=== PATIENT | male | born 1960 | race Caucasian/White ===

== ENCOUNTER 2016-10-16 14:44 | Emergency (ER) | payer MEDICARE ==
[~2016-10-16] VITALS: Ht 167.6 cm; Wt 102.3 kg
[2016-10-16 14:47] VITALS: BP 152/92; TEMP 97.9
[2016-10-16] MEDS ORDERED: ZOCOR 10MG10 MG PO (15:20)
[2016-10-16] MEDS ORDERED: VENLAFAXINE225 MG PO (15:20)
[2016-10-16] MEDS ORDERED: GLUCOTROL XL5 MG/TAB PO (15:20)
[2016-10-16] MEDS ORDERED: ASPIRIN 32325 MG/TAB PO (15:21)
[2016-10-16] MEDS ORDERED: TOPROL XL 25MG25 MG PO (15:21)
[2016-10-16] MEDS ORDERED: LIPITOR20 MG PO (15:22)
[2016-10-16] MEDS ORDERED: PLAVIX 75MG TAB75 MG PO (15:22)
[2016-10-16] MEDS ORDERED: NORCO 325 MG-7.1 TAB PO (16:31)
[2016-10-16 16:38] VITALS: PULSE 84
== END 2016-10-16 16:39 | disposition home or self-care (01) ==
LOC: COL.ER 14:44
DX: M25.551 Pain in right hip (principal); I10 Essential (primary) hypertension; E11.9 Type 2 diabetes mellitus without complications; F17.200 Nicotine dependence, unspecified, uncomplicated; I87.8 Other specified disorders of veins; Z79.02 Long term (current) use of antithrombotics/antiplatelets; Z79.84 Long term (current) use of oral hypoglycemic drugs

== ENCOUNTER 2020-04-21 20:06 | Inpatient (IN) | payer MEDICARE ==
[~2020-04-21] VITALS: Ht 167.6 cm; Wt 98.7 kg
[~2020-04-21 20:06] MED LIST: ASPIRIN 32325 MG/TAB PO; GLUCOTROL XL5 MG/TAB PO; LIPITOR20 MG PO; NORCO 325 MG-7.1 TAB PO; PLAVIX 75MG TAB75 MG PO; TOPROL XL 25MG25 MG PO; VENLAFAXINE225 MG PO; ZOCOR 10MG10 MG PO
[2020-04-21 20:26] LABS: BASO # 0.1 (0.0-0.2); BASO % 0.3 % (0.0-2.0); EOS % 0.1 % (0-4.0); GRAN # 15.3 (1.4-6.5); GRAN % 86.4 % (42.2-75.2); LYMPH # 0.9 (1.2-3.4); LYMPH % 5.1 % (20.0-51.0); MEAN CELL VOLUME 75 fl (80.0-100.0); MEAN CORPUSCULAR HEMOGLOBIN 24 pg (27.0-31.0); MEAN CORPUSCULAR HGB CONC 32 g/dl (33.0-37.0); MONO # 1.3 (0.1-0.6); MONO % 7.3 % (1.7-9.3); PLATELET COUNT 257 K/mm3 (130-400); RED BLOOD COUNT 4.59 M/mm3 (4.20-5.60); REDCELL DISTRIBUTION WIDTH-CV 15.8 % (11.5-14.5)
[2020-04-21 20:27] LABS: HEMATOCRIT 34.6 % (42.0-52.0)
[2020-04-21 20:40] LABS: ALANINE AMINOTRANSFERASE 14 U/L (4-49); ALBUMIN 4.2 gm/dL (3.5-5.0); ALKALINE PHOSPHATASE 74 U/L (50-136); ANION GAP 9 mmol/L (7-16); AST,SGOT 26 U/L (15-37); BILIRUBIN,TOTAL 0.8 mg/dL (0.0-1.0); BLOOD UREA NITROGEN 12 mg/dL (9-20); C-REACTIVE PROTEIN 6.5 mg/dL (0.0-0.9); CALCIUM 9.1 mg/dL (8.4-10.2); CARBON DIOXIDE 29 mmol/L (22-30); CHLORIDE 95 mmol/L (98-107); CREATININE, serum 0.75 (0.66-1.25); GLUCOSE 145 mg/dL (74-106); POTASSIUM 4.3 mmol/L (3.4-5.0); SODIUM 133 mmol/L (137-145); TOTAL PROTEIN 7.8 gm/dL (6.4-8.2)
[2020-04-21 20:43] LABS: ARTERIAL BLD GAS O2 SATURATION 96.7 % (92-100); ARTERIAL BLD GAS TCO2 CT 26.2; ARTERIAL BLOOD GAS BASE EXCESS 0.3 (-2-2); ARTERIAL BLOOD GAS PCO2 40.7 mmHg (35-45); ARTERIAL BLOOD GAS pH 7.41 (7.35-7.45)
[2020-04-21 20:46] LABS: INR 1.3 (0.8-3.0); PROTHROMBIN TIME 14.1 SECONDS (9.7-12.8)
[2020-04-21 20:49] LABS: TROPONIN-I < 0.012 ng/mL (0.000-0.035)
[2020-04-21 23:11] LABS: COLLECTION METHOD CATHETER
[2020-04-21] MEDS ORDERED: LIPITOR 40MG TA40 MG PO (23:15)
[2020-04-21] MEDS ORDERED: EFFEXOR-XR150 MG PO (23:15)
[2020-04-21] MEDS ORDERED: METHADONE H10 MG/TAB PO (23:16)
[2020-04-21] MEDS ORDERED: MORPHINE 1515 MG/TAB PO ×2 (23:16→23:18)
[2020-04-21 23:17] LABS: MUCOUS Present /lpf; PH 7 (5-8); SQUAMOUS EPITHELIAL None Seen /hpf; URINE APPEARANCE Clear; URINE BACTERIA None Seen /hpf; URINE BILIRUBIN Negative (NEGATIVE); URINE BLOOD Negative (NEGATIVE); URINE COLOR Yellow; URINE GLUCOSE Negative (NEGATIVE); URINE KETONE Negative (NEGATIVE); URINE LEUKOCYTE ESTERASE Negative (NEGATIVE); URINE NITRATE Negative (NEGATIVE); URINE PROTEIN(semi-quant) Negative (NEGATIVE); URINE UROBILINOGEN Negative (NEGATIVE)
[2020-04-21] MEDS ORDERED: NEURONTIN400 MG/CAP PO (23:17)
[2020-04-21 23:26] LABS: TRICYCLIC ANTIDEPRESS URINE NEGATIVE
[2020-04-21 23:40] LABS: ACETAMINOPHEN < 10 ug/mL (10-30); ALCOHOL(ethanol),MEDICAL < 10 mg/dL; SALICYLATE < 1.0 mg/dL
[2020-04-22] VITALS (431 sets, daily range): BP systolic 134–161; BP diastolic 63–73; PULSE 66–83; TEMP 98–98.2; O2SAT 87–100
[2020-04-22] MEDS ORDERED: MORPHINE 1515 MG/TAB PO (00:36)
[2020-04-22] MEDS ORDERED: EFFEXOR-XR150 MG PO (00:36)
[2020-04-22] MEDS ORDERED: NEURONTIN400 MG/CAP PO (00:37)
[2020-04-22] MEDS ORDERED: METHADONE H10 MG/TAB PO (00:37)
[2020-04-22] MEDS ORDERED: ONE-A-DAY ESSE1 EACH PO (00:38)
[2020-04-22] MEDS ORDERED: RT ADVAIR 228 DISKUS IH (00:38)
--- NOTE | 2020-04-22 00:45 | NUR ---
Hospitalist updated on patient status. Opens eyes to speech and stimulation. Squeezed this nurses hands on command but would not verbalize any response to any questions. Is somnolent and falls back to sleep almost immediately after stimulation. Currently on 4L oxymask with 02 saturations 90-91%. Patient able to maintain airway with no snoring and coughing noted.
--- NOTE | 2020-04-22 00:52 | NUR ---
Vancomycin Initial Dosing Pharmacy Note Ordering provider: Omero Martinez MD 59 yo M Indication: PNA (7 days) goal: 15-20 Hx: none identified BMI: 42.1 Wt:118.2 kg AdjBW: 85.6 kg SCr: 0.75 estCrCL~ 125 ml/min t 1/2~ 6h Tmax: 102.8 O2sat 92% requiring 3 L WBC: 17.7 LA WNL CRP: 6.5 Micro pending Per H&P CT chest reporting "right upper lobe and right lower lobe consolidation with associated ground-glass halo. May represent bacterial or fungal pneumonia or CESAR" Loaded pt with 2.5 gm (~21 mg/kg) x1. Will then start a maintenance regimen of 1gm q8h. Pt unlikely to follow population based kientics and at high risk for accumulation 2/2 elevated BMI. Will follow renal function and micro for need to adjust therapy. Thank you for this dosing consult!
--- NOTE | 2020-04-22 01:19 | NUR ---
Updated via telephone; all questions and concerns addressed at this time.
--- NOTE | 2020-04-22 02:00 | NUR ---
While assising with abiola-care patient suddenly sat up and stated "I need to pee". Patient voided 650 ml of orange urine into urinal. This was the first coherent verbalization patient has made since arrival to the icu. Would not verbalize anyting else for this nurse after voiding. Will continue to monitor.
--- NOTE | 2020-04-22 03:20 | NUR ---
Confirmed with hospitalist that she went over patient's medication list with the in the ER.
[2020-04-22 04:19] LABS: HEMOGLOBIN 10.3 g/dl (13.5-18.0); MEAN CELL VOLUME 76 fl (80.0-100.0); MEAN CORPUSCULAR HEMOGLOBIN 24 pg (27.0-31.0); MEAN CORPUSCULAR HGB CONC 32 g/dl (33.0-37.0); MEAN PLATELET VOLUME 9.4 fl (7.4-10.4); PLATELET COUNT 235 K/mm3 (130-400); RED BLOOD COUNT 4.27 M/mm3 (4.20-5.60); REDCELL DISTRIBUTION WIDTH-CV 15.9 % (11.5-14.5)
[2020-04-22 04:29] LABS: CALCIUM 8.9 mg/dL (8.4-10.2); CREATININE, serum 0.74 (0.66-1.25); POTASSIUM 3.9 mmol/L (3.4-5.0)
[2020-04-22 04:40] LABS: HEMATOCRIT 32.5 % (42.0-52.0)
[2020-04-22 04:42] LABS: BAND 7 % (0-10); LYMPHOCYTE 1 % (20.0-51.0); NEUTROPHILS 91 % (42.0-75.2)
[2020-04-22 04:43] LABS: ANISOCYTOSIS 1+; HYPOCHROMIA 2+; MICROCYTOSIS 1+; PLATELET ESTIMATE NORMAL (NORMAL)
[2020-04-22 04:44] LABS: SCHISTOCYTES 1+
--- NOTE | 2020-04-22 06:00 | NUR ---
Patient awake in bed. Able to tell this nurse the current year. Shook head yes when asked if he knew he was in the hospital. Able to follow basic commands appropriately. Will continue to monitor; call light left within reach.
--- NOTE | 2020-04-22 07:20 | NUR ---
Report received from Danii GUERRERO
--- NOTE | 2020-04-22 10:00 | NUR ---
Pt spouse called for an update. Discussed what was received in report. Pt has been noted to be sleeping through this shift up to this time. Will call with an update once physician completes rounds and we know more of what the plan is for today. Verbal agreement received. Phone number provided to this nurse was [phone].
--- NOTE | 2020-04-22 11:45 | NUR ---
Nicotine patch placed on right lateral inferior shoulder.
--- NOTE | 2020-04-22 12:35 | NUR ---
This nurse called pts spouce to ensure that there was no further questions following physician discussion. Concetta denies. She refused the need for staff to call with new room number, stating "I can call and get it later". Discussion was had about visitation, she was understanding although requested to bring some pt belongings to the facility. That was encouraged by this nurse. Encouragement for spouce to call with any further questions/ concerns.
--- NOTE | 2020-04-22 13:56 | NUR ---
DAYNA called spouse Jammie at [phone] to complete intake. Unable to reach. SW will continue to follow and call spouse for intake documentation.
--- NOTE | 2020-04-22 17:30 | NUR ---
Report provided to Donna GUERRERO on medical.
--- NOTE | 2020-04-22 18:20 | NUR ---
Pt assisted to Medical floor rm 308 X2 staff from ICU in wheelchair. Pt transfered with 1 vásquez movement from bed to wheelchair. Personal belongings in bags (clothes). IVF placed in pumps and reviewed with new nurse. Pt asking questions about diagnosis. Reviewed medications and diagnosis, speech therapy and the need for mechanical soft diet. Pt verbalized understanding.
--- NOTE | 2020-04-22 18:28 | NUR ---
Patient arrived to the floor and is settled. He is stable. IVF and medications running with no issues at this time. patient was instructed to call before ambulating within room for precautionary purposes.Dinner tray ordered and delivered. No other needs were expresseed. Will continue to monitor. Call light is in reach.
--- NOTE | 2020-04-22 18:40 | NUR ---
Called lisandro to notify what room pt moved to (308) and that he is asking questions, and is questing sweatpants.
--- NOTE | 2020-04-22 20:30 | NUR ---
MDI'S DID NOT TRANSFER WITH PATIENT. MOTOR TESTER NOTIFIED.
--- NOTE | 2020-04-23 02:10 | NUR ---
MDI'S DID NOT TRANSFER WITH PATIENT. LEAD ETL DEVELOPER NOTIFIED.
[2020-04-23 05:00] VITALS: BP 158/65; PULSE 91; TEMP 97.9
[2020-04-23 06:38] LABS: BASO % 0.1 % (0.0-2.0); GRAN # 16.2 (1.4-6.5); GRAN % 88.4 % (42.2-75.2); HEMATOCRIT 37.1 % (42.0-52.0); HEMOGLOBIN 11.2 g/dl (13.5-18.0); LYMPH # 1.2 (1.2-3.4); LYMPH % 6.5 % (20.0-51.0); MEAN CELL VOLUME 78 fl (80.0-100.0); MEAN CORPUSCULAR HEMOGLOBIN 24 pg (27.0-31.0); MEAN CORPUSCULAR HGB CONC 30 g/dl (33.0-37.0); MEAN PLATELET VOLUME 9.9 fl (7.4-10.4); MONO # 0.8 (0.1-0.6); MONO % 4.2 % (1.7-9.3); PLATELET COUNT 293 K/mm3 (130-400); RED BLOOD COUNT 4.76 M/mm3 (4.20-5.60); REDCELL DISTRIBUTION WIDTH-CV 16.2 % (11.5-14.5)
[2020-04-23 06:46] LABS: CALCIUM 9.3 mg/dL (8.4-10.2); CREATININE, serum 0.66 (0.66-1.25); MAGNESIUM 2.2 mg/dL (1.6-2.3)
[2020-04-23 08:13] VITALS: BP 172/72; PULSE 87; TEMP 98.1
--- NOTE | 2020-04-23 11:08 | NUR ---
Pt awake and alert upon entry, in bed. Pt ambulated to restroom. Pt's IV in right hand pulled, new IV started in left forearm. No C\O pain at this time. Shift assessments complete, left Pt call light in reach, bed in lowest position.
[2020-04-23 11:33] VITALS: BP 150/67; PULSE 99; TEMP 97.8
[2020-04-23 15:53] VITALS: BP 186/96; PULSE 84; TEMP 98.7
--- NOTE | 2020-04-23 16:44 | NUR ---
Medical Transcription Radiology contacted patient's to complete intake. Patient lives in [place] with his , Jammie and sees Dr. Yadav at [facility]. Patient obtains medications from [facility] in [place] with no difficulties. Patient has a cane and no other DME. Patient is currently requiring oxygen. SW reviewed DME options including [facility] and [facility] if home oxygen is needed. Jammie advised the preference would be [facility]. Patient does not have Advanced Directives. Jammie advised patient is independent with ADLS and plans to return home upon discharge. SW will continue to follow.
[2020-04-23 21:26] VITALS: BP 153/55; PULSE 80; TEMP 98.8
[2020-04-24 00:06] VITALS: BP 167/59; PULSE 77; TEMP 98.1
[2020-04-24 03:45] VITALS: BP 135/55; PULSE 81; TEMP 98.1
[2020-04-24 07:46] VITALS: BP 160/57; PULSE 90; TEMP 97.9
[2020-04-24 08:18] LABS: BASO % 0.1 % (0.0-2.0); GRAN # 9.2 (1.4-6.5); GRAN % 83.1 % (42.2-75.2); LYMPH # 1.2 (1.2-3.4); LYMPH % 11.2 % (20.0-51.0); MEAN CELL VOLUME 79 fl (80.0-100.0); MEAN CORPUSCULAR HGB CONC 30 g/dl (33.0-37.0); MEAN PLATELET VOLUME 10.2 fl (7.4-10.4); MONO # 0.6 (0.1-0.6); MONO % 5.3 % (1.7-9.3); PLATELET COUNT 248 K/mm3 (130-400); RED BLOOD COUNT 4.14 M/mm3 (4.20-5.60); REDCELL DISTRIBUTION WIDTH-CV 16.2 % (11.5-14.5)
[2020-04-24 08:19] LABS: HEMATOCRIT 32.5 % (42.0-52.0); HEMOGLOBIN 9.8 g/dl (13.5-18.0); MEAN CORPUSCULAR HEMOGLOBIN 24 pg (27.0-31.0)
--- NOTE | 2020-04-24 09:16 | NUR ---
Pt awake and alert upon entry, sitting in the recliner. Has minor C/O pain at this time. Shift assessment complete, left Pt call light in reach, bed in lowest position.
[2020-04-24 09:28] LABS: CALCIUM 9.2 mg/dL (8.4-10.2); CREATININE, serum 0.67 (0.66-1.25); MAGNESIUM 2.1 mg/dL (1.6-2.3); POTASSIUM 3.8 mmol/L (3.4-5.0)
[2020-04-24 11:50] VITALS: BP 155/62; PULSE 86; TEMP 98.2
--- NOTE | 2020-04-24 12:58 | NUR ---
Anesthesiologist Assistant attended clinical rounds with the team. Patient's oxygen needs are improving and currently down to 1 liter. SW will continue to follow.
--- NOTE | 2020-04-24 13:59 | NUR ---
Director Oracle received a message from RT Ramonita that patient will qualify for home oxygen. SW met with patient and confirmed [place] [facility] is the preference. DAYNA contacted Pricila at [facility] and advised patient may discharge tomorrow. DAYNA will continue to follow.
[2020-04-24 16:14] VITALS: BP 155/47; PULSE 77; TEMP 98.3
--- NOTE | 2020-04-24 19:31 | NUR ---
Pt resting in the room today, has had some C/O pain today. VS have remained stable.
--- NOTE | 2020-04-24 20:30 | NUR ---
Initial shift assessment done- denies SOB, on 1.5L/nc, sats 95%,, tele on, denies pain, has lower extremity edema and very dark discoloration of lower legs, has 2 open areas to right upper back-- pt states they are chronic and many doctors have tried to deal with this-- states at home puts some xeroform vaseling gauze and dry gauze over these--- will dress them at this time for patient-- very appreciative
[2020-04-24 21:14] VITALS: BP 159/58; PULSE 78; TEMP 97.5
[2020-04-25 00:45] VITALS: BP 156/52; PULSE 79; TEMP 97.7
[2020-04-25 04:42] VITALS: BP 137/104; PULSE 64; TEMP 97.4
--- NOTE | 2020-04-25 05:37 | NUR ---
Queit night- slept fair,, Up in chair now watching the news, no requests.
--- NOTE | 2020-04-25 07:15 | NUR ---
PT SLEEPING AT THIS TIME. NO CONCERNS.
[2020-04-25 07:28] LABS: BASO % 0.1 % (0.0-2.0); EOS % 0.2 % (0-4.0); GRAN # 6.6 (1.4-6.5); GRAN % 75.7 % (42.2-75.2); HEMATOCRIT 34.2 % (42.0-52.0); HEMOGLOBIN 10.6 g/dl (13.5-18.0); LYMPH # 1.5 (1.2-3.4); LYMPH % 17.3 % (20.0-51.0); MEAN CELL VOLUME 77 fl (80.0-100.0); MEAN CORPUSCULAR HEMOGLOBIN 24 pg (27.0-31.0); MEAN CORPUSCULAR HGB CONC 31 g/dl (33.0-37.0); MEAN PLATELET VOLUME 9.8 fl (7.4-10.4); MONO # 0.6 (0.1-0.6); MONO % 6.4 % (1.7-9.3); PLATELET COUNT 263 K/mm3 (130-400); RED BLOOD COUNT 4.44 M/mm3 (4.20-5.60)
[2020-04-25 07:38] VITALS: BP 163/68; PULSE 67; TEMP 97.6
[2020-04-25 07:42] LABS: CALCIUM 9.4 mg/dL (8.4-10.2); CREATININE, serum 0.68 (0.66-1.25); POTASSIUM 3.8 mmol/L (3.4-5.0)
[2020-04-25] MEDS ORDERED: PROVENTIL0.09 MG/A1 IH (11:07)
[2020-04-25] MEDS ORDERED: PRINIVIL10 MG PO (11:09)
[2020-04-25] MEDS ORDERED: LEVAQUIN 5500 MG/TA1 PO (11:09)
[2020-04-25] MEDS ORDERED: PREDNISONE10 MG PO (11:18)
[2020-04-25] MEDS ORDERED: OXYGEN NASAL.CANN (11:19)
[2020-04-25 11:34] VITALS: BP 152/64; PULSE 72; TEMP 97.7
[2020-04-25] MEDS ORDERED: NICODERM C21 MG/PATC TD (13:19)
--- NOTE | 2020-04-25 13:50 | NUR ---
Electrician Apprentice Powerhouse attended clinical rounds and the patient will discharge home today with home oxygen. DAYNA faxed referral/orders to Shea at [facility] who advised they would deliver up a tank to patient's room. DAYNA contacted patient's , Jammie to provide update. Jammie will hop picker patient later. Cat inquired about nicotine patches for patient as he is trying to quit smoking. DAYNA requested this from [facility]. DAYNA updated patient about oxygen. No additional needs at this time.
== END 2020-04-25 15:00 | disposition home or self-care (01) | DRG 871 ==
LOC: COL.ER 20:06 → ICU 22:56 → MEDICAL 22:56
PROVIDERS: Emergency Medicine; Nurse Practitioner Family; Physician Assistant; ADMIT Internal Medicine
DX: A40.3 Sepsis due to Streptococcus pneumoniae (principal); J13 Pneumonia due to Streptococcus pneumoniae; J96.01 Acute respiratory failure with hypoxia; G92 Toxic encephalopathy; Z68.41 Body mass index [BMI] 40.0-44.9, adult; J44.9 Chronic obstructive pulmonary disease, unspecified; I25.10 Atherosclerotic heart disease of native coronary artery without angina pectoris; R01.1 Cardiac murmur, unspecified; T40.601A Poisoning by unspecified narcotics, accidental (unintentional), initial encounter; E78.5 Hyperlipidemia, unspecified; G89.29 Other chronic pain; E11.40 Type 2 diabetes mellitus with diabetic neuropathy, unspecified; D64.9 Anemia, unspecified; F17.210 Nicotine dependence, cigarettes, uncomplicated; E66.01 Morbid (severe) obesity due to excess calories; Z20.822 Contact with and (suspected) exposure to COVID-19; Z88.1 Allergy status to other antibiotic agents
CPT/HCPCS: 99223-AI; 99232-AI; 99233-AI; 99239; J0696; J1450; J1650; J2060; J2310; J2543; J3010; J3370; J7030; J7050; J7512; Q9967

== ENCOUNTER 2020-11-15 18:49 | Observation (INO) | payer MEDICARE ==
[2020-11-15] VITALS (9 sets, daily range): O2SAT 93–96
[~2020-11-15] VITALS: Ht 167.6 cm; Wt 111.8 kg
[~2020-11-15 18:49] MED LIST changes: +EFFEXOR-XR150 MG PO; +LEVAQUIN 5500 MG/TA1 PO; +LIPITOR 40MG TA40 MG PO; +METHADONE H10 MG/TAB PO; +MORPHINE 1515 MG/TAB PO; +NEURONTIN400 MG/CAP PO; +NICODERM C21 MG/PATC TD; +ONE-A-DAY ESSE1 EACH PO; +OXYGEN NASAL.CANN; +PREDNISONE10 MG PO; +PRINIVIL10 MG PO; +PROVENTIL0.09 MG/A1 IH; +RT ADVAIR 228 DISKUS IH
[2020-11-15 22:42] LABS: BASO # 0.1 (0.0-0.2); BASO % 0.7 % (0.0-2.0); EOS # 0.1 (0.0-0.7); EOS % 1.1 % (0-4.0); GRAN % 72.3 % (42.2-75.2); HEMOGLOBIN 11.5 g/dl (13.5-18.0); LYMPH # 1.5 (1.2-3.4); LYMPH % 17.8 % (20.0-51.0); MEAN CELL VOLUME 78 fl (80.0-100.0); MEAN CORPUSCULAR HEMOGLOBIN 26 pg (27.0-31.0); MEAN CORPUSCULAR HGB CONC 33 g/dl (33.0-37.0); MONO # 0.6 (0.1-0.6); MONO % 7.7 % (1.7-9.3); PLATELET COUNT 272 K/mm3 (130-400); RED BLOOD COUNT 4.44 M/mm3 (4.20-5.60); REDCELL DISTRIBUTION WIDTH-CV 14.7 % (11.5-14.5)
[2020-11-15 22:43] LABS: HEMATOCRIT 34.4 % (42.0-52.0)
[2020-11-15 23:15] LABS: ALBUMIN 4.2 gm/dL (3.5-5.0); BILIRUBIN,TOTAL 0.4 mg/dL (0.0-1.0); CALCIUM 9.6 mg/dL (8.4-10.2); CREATININE, serum 1.08 (0.66-1.25); POTASSIUM 4.2 mmol/L (3.4-5.0); TOTAL PROTEIN 8.1 gm/dL (6.4-8.2)
[2020-11-15 23:41] LABS: THYROID STIMULATING HORMONE 2.004 uIU/mL (0.350-4.940)
[2020-11-15 23:44] LABS: MAGNESIUM 1.6 mg/dL (1.6-2.3)
[2020-11-16] VITALS (439 sets, daily range): BP systolic 99–152; BP diastolic 61–96; PULSE 84–145; TEMP 97.7–99.3; O2SAT 71–100
--- NOTE | 2020-11-16 00:31 | NUR ---
Patient arrived to facility at 2230 admitted to room icu 08, attached to monitors, iv started and assessment done, noted patient with rapid heart rate on monitor and auscultated, ekg obtained and at [address] Oden of results and updated on current status including that patient is asymptomatic with current heart rate, with patient stating that only on occassion does he feel like his heart is beating fast, no new orders for patient at this time [address] care Dr. Caceres who gave ok to give patient home pain medications that he usually takes at night (lyrica and morphine)
[2020-11-16] MEDS ORDERED: LASIX 40MG TABL40 MG PO (03:24)
[2020-11-16] MEDS ORDERED: LYRICA300 MG PO (03:25)
[2020-11-16] MEDS ORDERED: ROXICODONE30 MG PO (03:26)
[2020-11-16] MEDS ORDERED: MS CONTIN 330 MG/TAB PO (03:28)
[2020-11-16] MEDS ORDERED: MORPHINE 1515 MG/TAB PO (03:29)
[2020-11-16] MEDS ORDERED: EFFEXOR-XR150 MG PO (03:31)
[2020-11-16] MEDS ORDERED: INCRUSE EL62.5 MCG/A INH (03:32)
--- NOTE | 2020-11-16 07:00 | NUR ---
PT SLEEPING IN BED. PT IS AFIB 110-140'S. OTHER VSS. PT NPO FOR BRYSON CARDIOVERSION LATER TODAY. WILL CONTINUE TO MONTIOR.
--- NOTE | 2020-11-16 07:59 | NUR ---
CALLED UZMA VAZQUEZ WITH REGARDING BRYSON CARDIOVERSION. STATES WILL BE AT LEAST AFTER 1200 BUT UNSURE OF TIME. WILL CALL BACK WHEN SHE IS AWARE. PT'S JESSICA CALLED AND UPDATED.
--- NOTE | 2020-11-16 11:09 | NUR ---
PLAN FOR BRYSON CARDIOVERSION AT 1300. ANESTHESIA AND ECHO NOTIFIED. CALLED AND UPDATED.
--- NOTE | 2020-11-16 13:09 | NUR ---
BRYSON/CV completed at bedside. 1310 - Tata Warren CRNA at bedside. 1314 - Timeout completed. 1319 - BRYSON probe in. 1321 - BRYSON probe out. 1322 - Synchronized cardioversion 200J with SR in 80s noted.
[2020-11-16] MEDS ORDERED: ELIQUIS 5MG PO (13:53)
[2020-11-16] MEDS ORDERED: MULTAQ400 MG PO (13:54)
--- NOTE | 2020-11-16 15:24 | NUR ---
latex foam worker met with patient to discuss discharge planning. Patient states he resides in [facility] and his primary care proider is Garima Art in [place]. Patient states he has home oxygen through [facility]. Patient plans to return home upon discharge and does not have advance directives and is not interested in information.
--- NOTE | 2020-11-16 15:33 | NUR ---
Patient provided with discharge instructions. INT removed. Waiting on to arrive.
--- NOTE | 2020-11-16 16:30 | NUR ---
Patient taken to POV by W/C with personal belongings. All questions answered.
== END 2020-11-16 16:40 | disposition home or self-care (01) ==
LOC: ICU 18:49
PROVIDERS: Nurse Practitioner; ADMIT Internal Medicine Interventional Cardiology
DX: I48.92 Unspecified atrial flutter (principal); R60.0 Localized edema; I48.91 Unspecified atrial fibrillation; I25.2 Old myocardial infarction; E78.5 Hyperlipidemia, unspecified; J44.9 Chronic obstructive pulmonary disease, unspecified; E11.9 Type 2 diabetes mellitus without complications; G43.909 Migraine, unspecified, not intractable, without status migrainosus; M19.90 Unspecified osteoarthritis, unspecified site; Z20.822 Contact with and (suspected) exposure to COVID-19; Z79.899 Other long term (current) drug therapy; Z79.01 Long term (current) use of anticoagulants; Z79.891 Long term (current) use of opiate analgesic; Z83.3 Family history of diabetes mellitus
CPT/HCPCS: G0378; J7030; J7120

== ENCOUNTER → 2020-11-30 | Outpatient (CLI) | payer MEDICARE ==
[~2020-11-30] MED LIST changes: +ELIQUIS 5MG PO; +INCRUSE EL62.5 MCG/A INH; +LASIX 40MG TABL40 MG PO; +LYRICA300 MG PO; +MS CONTIN 330 MG/TAB PO; +MULTAQ400 MG PO; +ROXICODONE30 MG PO
== END ==
LOC: COL.PUL 11-29 08:00
DX: J44.9 Chronic obstructive pulmonary disease, unspecified (principal)
CPT/HCPCS: A9540; A9567

== ENCOUNTER → 2021-03-13 | Outpatient (CLI) | payer MEDICARE | LOC: COL.RAD 11:22 | DX: I65.23 Occlusion and stenosis of bilateral carotid arteries (principal) | CPT/HCPCS: Q9967 ==

== ENCOUNTER 2021-04-28 20:15 | Emergency (ER) | payer MEDICARE ==
[~2021-04-28] VITALS: Ht 167.6 cm; Wt 113.6 kg
[2021-04-28] MEDS ORDERED: OXYCONTIN 10MG10 MG PO (20:49)
[2021-04-28] MEDS ORDERED: OXYCONTIN 20MG20 MG PO (20:50)
[2021-04-28] MEDS ORDERED: PLAVIX 75MG TAB75 MG PO (20:50)
[2021-04-28] MEDS ORDERED: FLEXERIL5 MG PO (20:50)
[2021-04-28] MEDS ORDERED: CORDARONE200 MG/TAB PO (20:51)
[2021-04-28 22:20] VITALS: BP 120/61; PULSE 80
[2021-05-01] VITALS (96 sets, daily range): O2SAT 90–100
== END 2021-04-28 22:25 | disposition home or self-care (01) ==
LOC: COL.ER 20:15
DX: T20.20XA Burn of second degree of head, face, and neck, unspecified site, initial encounter (principal); T31.0 Burns involving less than 10% of body surface; J44.9 Chronic obstructive pulmonary disease, unspecified; E11.9 Type 2 diabetes mellitus without complications; I48.91 Unspecified atrial fibrillation; Z79.01 Long term (current) use of anticoagulants; Z79.899 Other long term (current) drug therapy; X08.8XXA Exposure to other specified smoke, fire and flames, initial encounter

== ENCOUNTER 2021-04-30 02:24 | Inpatient (IN) | payer MEDICARE ==
[2021-04-30] VITALS (71 sets, daily range): BP systolic 150; BP diastolic 63; PULSE 91; TEMP 99.2–99.4; O2SAT 90–99
[~2021-04-30] VITALS: Ht 167.6 cm; Wt 103.9 kg
[~2021-04-30 02:24] MED LIST changes: +CORDARONE200 MG/TAB PO; +FLEXERIL5 MG PO; +OXYCONTIN 10MG10 MG PO; +OXYCONTIN 20MG20 MG PO
[2021-04-30 02:42] LABS: BASO % 0.4 % (0.0-2.0); EOS # 0.1 K/mm3 (0.0-0.7); EOS % 0.6 % (0.0-4.0); GRAN # 7.2 K/mm3 (1.4-6.5); HEMATOCRIT 31.6 % (42.0-52.0); HEMOGLOBIN 9.8 g/dl (13.5-18.0); LYMPH # 0.5 K/mm3 (1.2-3.4); LYMPH % 6.2 % (20.0-51.0); MEAN CELL VOLUME 78 fl (80.0-100.0); MEAN CORPUSCULAR HEMOGLOBIN 24 pg (27-31); MEAN CORPUSCULAR HGB CONC 31 g/dl (33.0-37.0); MEAN PLATELET VOLUME 9.5 fl (7.4-10.4); MONO # 0.5 K/mm3 (0.1-0.6); MONO % 6.1 % (1.7-9.3); PLATELET COUNT 241 K/mm3 (130-400); RED BLOOD COUNT 4.07 M/mm3 (4.20-5.60); REDCELL DISTRIBUTION WIDTH-CV 15.7 % (11.5-14.5)
[2021-04-30 02:58] LABS: ALBUMIN 3.6 gm/dL (3.4-4.8); BILIRUBIN,TOTAL 0.6 mg/dL (0.2-1.2); CALCIUM 8.8 mg/dL (8.4-10.2); CREATININE, serum 0.9 mg/dL (0.72-1.25); POTASSIUM 3.7 mmol/L (3.5-4.5); TOTAL PROTEIN 7.8 gm/dL (6.2-8.1)
[2021-04-30 03:04] LABS: TROPONIN-I 0.02 ng/mL (0.00-0.033)
[2021-04-30] MEDS ORDERED: VENLAFAXINE225 MG PO (04:29)
[2021-04-30] MEDS ORDERED: ELIQUIS 5MG PO (04:29)
[2021-04-30] MEDS ORDERED: LIPITOR 80MG80 MG PO (04:30)
[2021-04-30] MEDS ORDERED: PERCOCET 325 MG1 TAB PO (04:31)
[2021-04-30] MEDS ORDERED: ASPIRIN 81M81 MG/TA2 PO (04:32)
[2021-04-30] MEDS ORDERED: EUTHYROX25 MCG PO (04:33)
[2021-04-30 12:58] LABS: ARTERIAL BLD GAS O2 SATURATION 96.2 % (92-100); ARTERIAL BLD GAS TCO2 CT 27.8; ARTERIAL BLOOD GAS BASE EXCESS 1.5 (-2-2); ARTERIAL BLOOD GAS HCO3 26.5 meq/L (22-26); ARTERIAL BLOOD GAS PCO2 43.4 mmHg (35-45); ARTERIAL BLOOD GAS PO2 80.2 mmHg (80-100)
[2021-04-30] MEDS ORDERED: IMDUR 30MG30 MG/TAB PO (22:23)
[2021-05-01] VITALS (286 sets, daily range): BP systolic 151–176; BP diastolic 54–89; PULSE 57–102; TEMP 98.5–99.2; O2SAT 73–100
[2021-05-01 05:27] LABS: BASO % 0.1 % (0.0-2.0); GRAN # 6.5 K/mm3 (1.4-6.5); GRAN % 88.4 % (42.2-75.2); LYMPH # 0.4 K/mm3 (1.2-3.4); LYMPH % 5.6 % (20.0-51.0); MEAN CELL VOLUME 75 fl (80.0-100.0); MEAN CORPUSCULAR HEMOGLOBIN 24 pg (27-31); MEAN CORPUSCULAR HGB CONC 32 g/dl (33.0-37.0); MEAN PLATELET VOLUME 9.9 fl (7.4-10.4); MONO # 0.4 K/mm3 (0.1-0.6); MONO % 4.9 % (1.7-9.3); PLATELET COUNT 328 K/mm3 (130-400); RED BLOOD COUNT 4.24 M/mm3 (4.20-5.60); REDCELL DISTRIBUTION WIDTH-CV 15.6 % (11.5-14.5)
[2021-05-01 05:37] LABS: HEMATOCRIT 31.6 % (42.0-52.0)
[2021-05-01 05:53] LABS: C-REACTIVE PROTEIN 10.21 mg/dL (0.00-0.50); CALCIUM 9.5 mg/dL (8.4-10.2); CREATININE, serum 0.8 mg/dL (0.72-1.25); POTASSIUM 3.2 mmol/L (3.5-4.5)
[2021-05-02 00:38] VITALS: BP 175/82; PULSE 88; TEMP 98.9
[2021-05-02 03:59] VITALS: BP 159/70; PULSE 86; TEMP 98.5
[2021-05-02 07:02] LABS: HEMOGLOBIN 10.2 g/dl (13.5-18.0); MEAN CELL VOLUME 75 fl (80.0-100.0); MEAN CORPUSCULAR HEMOGLOBIN 24 pg (27-31); MEAN CORPUSCULAR HGB CONC 31 g/dl (33.0-37.0); MEAN PLATELET VOLUME 9.7 fl (7.4-10.4); PLATELET COUNT 350 K/mm3 (130-400); RED BLOOD COUNT 4.33 M/mm3 (4.20-5.60); REDCELL DISTRIBUTION WIDTH-CV 15.6 % (11.5-14.5)
[2021-05-02 07:14] LABS: HEMATOCRIT 32.5 % (42.0-52.0)
[2021-05-02 07:22] LABS: C-REACTIVE PROTEIN 4.44 mg/dL (0.00-0.50); CALCIUM 8.9 mg/dL (8.4-10.2); CREATININE, serum 0.99 mg/dL (0.72-1.25); POTASSIUM 3.2 mmol/L (3.5-4.5)
[2021-05-02 08:04] VITALS: BP 172/75; PULSE 80; TEMP 98.6
[2021-05-02 11:40] VITALS: BP 141/64; PULSE 80; TEMP 98.2
[2021-05-02 16:09] VITALS: BP 134/56; PULSE 78; TEMP 98.6
[2021-05-02 20:59] VITALS: BP 143/62; PULSE 70; TEMP 97.7
[2021-05-03 00:40] VITALS: BP 143/52; PULSE 65; TEMP 98.1
[2021-05-03 04:24] VITALS: BP 157/76; PULSE 66; TEMP 97.9
[2021-05-03 06:53] LABS: CALCIUM 9.2 mg/dL (8.4-10.2); POTASSIUM 3.2 mmol/L (3.5-4.5)
[2021-05-03 07:41] LABS: CREATININE, serum 0.93 mg/dL (0.72-1.25)
[2021-05-03 08:12] VITALS: BP 136/90; PULSE 94; TEMP 97.8
[2021-05-03] MEDS ORDERED: OMNICEF 300MG300 MG PO (10:37)
[2021-05-03] MEDS ORDERED: ZESTRIL 10MG10 MG PO (10:38)
[2021-05-03] MEDS ORDERED: DECADRON6 MG PO (10:42)
[2021-05-03] MEDS ORDERED: LASIX 40MG TABL40 MG PO (10:43)
[2021-05-03] MEDS ORDERED: GLUCOPHAGE500 MG/TAB PO (10:47)
[2021-05-03 11:19] VITALS: BP 134/60; PULSE 73; TEMP 97.8
== END 2021-05-03 17:26 | disposition home or self-care (01) | DRG 177 ==
LOC: COL.ER 02:24 → MEDICAL 11:56 → COL.ER 11:56 → ICU 13:30 → MEDICAL 05-01 18:18
PROVIDERS: Internal Medicine; Physician Assistant; Student in an Organized Health Care Education/Training Program; ADMIT Student in an Organized Health Care Education/Training Program
PROC: XW033E5 Introduction of Remdesivir Anti-infective into Peripheral Vein, Percutaneous Approach, New Technology Group 5 (ICD-10-PCS; principal; 2021-04-30)
DX: U07.1 COVID-19 (principal); J96.21 Acute and chronic respiratory failure with hypoxia; G92.8 Other toxic encephalopathy; I50.31 Acute diastolic (congestive) heart failure; I48.92 Unspecified atrial flutter; I24.8 Other forms of acute ischemic heart disease; J44.1 Chronic obstructive pulmonary disease with (acute) exacerbation; Z68.41 Body mass index [BMI] 40.0-44.9, adult; E11.9 Type 2 diabetes mellitus without complications; I48.91 Unspecified atrial fibrillation; E03.9 Hypothyroidism, unspecified; F17.210 Nicotine dependence, cigarettes, uncomplicated; E78.5 Hyperlipidemia, unspecified; I25.10 Atherosclerotic heart disease of native coronary artery without angina pectoris; E66.01 Morbid (severe) obesity due to excess calories; G89.29 Other chronic pain; D50.9 Iron deficiency anemia, unspecified; J32.9 Chronic sinusitis, unspecified; F32.A Depression, unspecified; I27.20 Pulmonary hypertension, unspecified; T20.24XA Burn of second degree of nose (septum), initial encounter; T40.605A Adverse effect of unspecified narcotics, initial encounter; I11.0 Hypertensive heart disease with heart failure; T42.6X5A Adverse effect of other antiepileptic and sedative-hypnotic drugs, initial encounter; X08.8XXA Exposure to other specified smoke, fire and flames, initial encounter; I25.2 Old myocardial infarction; Z79.82 Long term (current) use of aspirin
CPT/HCPCS: 99223-AI; 99232-AI; 99233-AI; 99239; J0248; J0456; J0696; J1100; J1815; J1940; J2920; J7050; Q9967

== ENCOUNTER 2021-05-16 13:38 | Inpatient (IN) | payer MEDICARE ==
[~2021-05-16] VITALS: Ht 167.6 cm; Wt 99.0 kg
[~2021-05-16 13:38] MED LIST changes: +ASPIRIN 81M81 MG/TA2 PO; +DECADRON6 MG PO; +EUTHYROX25 MCG PO; +GLUCOPHAGE500 MG/TAB PO; +IMDUR 30MG30 MG/TAB PO; +LIPITOR 80MG80 MG PO; +OMNICEF 300MG300 MG PO; +PERCOCET 325 MG1 TAB PO; +ZESTRIL 10MG10 MG PO
[2021-05-16 14:22] LABS: BASO % 0.1 % (0.0-2.0); EOS # 0.1 K/mm3 (0.0-0.7); EOS % 0.6 % (0.0-4.0); GRAN # 7.1 K/mm3 (1.4-6.5); GRAN % 85.7 % (42.2-75.2); LYMPH # 0.7 K/mm3 (1.2-3.4); LYMPH % 7.8 % (20.0-51.0); MEAN CELL VOLUME 72 fl (80.0-100.0); MEAN CORPUSCULAR HGB CONC 33 g/dl (33.0-37.0); MEAN PLATELET VOLUME 10.1 fl (7.4-10.4); MONO # 0.4 K/mm3 (0.1-0.6); MONO % 5.3 % (1.7-9.3); PLATELET COUNT 188 K/mm3 (130-400); RED BLOOD COUNT 4.13 M/mm3 (4.20-5.60); REDCELL DISTRIBUTION WIDTH-CV 16.2 % (11.5-14.5)
[2021-05-16 14:23] LABS: HEMATOCRIT 29.7 % (42.0-52.0); HEMOGLOBIN 9.7 g/dl (13.5-18.0); MEAN CORPUSCULAR HEMOGLOBIN 23 pg (27-31)
[2021-05-16 14:31] LABS: INR 2.5 (0.8-3.0); PROTHROMBIN TIME 27.6 SECONDS (9.7-12.8)
[2021-05-16 14:38] LABS: ALBUMIN 2.3 gm/dL (3.4-4.8); BILIRUBIN,TOTAL 0.9 mg/dL (0.2-1.2); CALCIUM 8.1 mg/dL (8.4-10.2); CREATININE, serum 1.46 mg/dL (0.72-1.25); POTASSIUM 4.3 mmol/L (3.5-4.5); TOTAL PROTEIN 6.2 gm/dL (6.2-8.1)
[2021-05-16 14:46] LABS: TROPONIN-I 0.072 ng/mL (0.00-0.033)
--- NOTE | 2021-05-16 18:28 | NUR ---
PT ADMITTED TO THE UNIT. ADMISSION INTAKE AND ASSESSMENT COMPLETED. PT VERY CONFUSED AND UNABLE TO ANSWER MOST QUESTIONS. ORIENTED TO ROOM. WILL CONTINUE TO MONITOR.
--- NOTE | 2021-05-16 18:33 | NUR ---
UNABLE TO UPDATE/VERIFY MED REC DUE TO PT NOT KNOWING HOME MEDICATIONS.
--- NOTE | 2021-05-16 20:00 | NUR ---
Patient is resting in bed, seems agitated and moving his arm with no sense. Alert and oriented to self and place. Follows comands. 3L O2 Oxymasc. Receiving NS at 75ml/hr. Assessment completed, medictions provided. No other need at this time. Call light within reach. Bed alarm on.
[2021-05-16 20:08] VITALS: BP 105/52; PULSE 81; TEMP 98.6
[2021-05-16 21:11] LABS: ARTERIAL BLD GAS O2 SATURATION 98.1 % (92-100); ARTERIAL BLD GAS TCO2 CT 22.5; ARTERIAL BLOOD GAS BASE EXCESS -2.6 (-2-2); ARTERIAL BLOOD GAS HCO3 21.4 meq/L (22-26); ARTERIAL BLOOD GAS PCO2 34.2 mmHg (35-45); ARTERIAL BLOOD GAS pH 7.42 (7.35-7.45)
[2021-05-16 23:48] LABS: COLLECTION METHOD CLEAN CATCH
[2021-05-16 23:58] LABS: PH 5 (5-8); SQUAMOUS EPITHELIAL 0-2 /hpf (0-10); URINE APPEARANCE Clear (CLEAR/HAZY); URINE BACTERIA Rare /hpf (NONE SEEN); URINE BILIRUBIN Negative (NEGATIVE); URINE BLOOD 1+ (NEGATIVE); URINE COLOR Yellow (YELLOW); URINE GLUCOSE 1+ (NEGATIVE); URINE KETONE Negative (NEGATIVE); URINE LEUKOCYTE ESTERASE 1+ (NEGATIVE); URINE NITRATE Negative (NEGATIVE); URINE PROTEIN(semi-quant) Negative (NEGATIVE); URINE RBC 0-2 /hpf (0-2); URINE UROBILINOGEN Negative (NEGATIVE)
[2021-05-17] VITALS (7 sets, daily range): BP systolic 126–152; BP diastolic 48–69; PULSE 79–89; TEMP 97.3–97.8
--- NOTE | 2021-05-17 06:17 | NUR ---
Pt has had an uneventful night. He has been alert and partially oriented. Right now at 2L O2 Oxymasc. Continue receiving NS AT 75ml/hr. Report will be given to day RN.
[2021-05-17 08:00] LABS: MEAN CELL VOLUME 74 fl (80.0-100.0); MEAN CORPUSCULAR HGB CONC 32 g/dl (33.0-37.0); MEAN PLATELET VOLUME 10.3 fl (7.4-10.4); PLATELET COUNT 159 K/mm3 (130-400); RED BLOOD COUNT 4.18 M/mm3 (4.20-5.60); REDCELL DISTRIBUTION WIDTH-CV 16.4 % (11.5-14.5)
[2021-05-17 08:05] LABS: CALCIUM 8.7 mg/dL (8.4-10.2); CREATININE, serum 0.99 mg/dL (0.72-1.25); POTASSIUM 4.3 mmol/L (3.5-4.5)
[2021-05-17 08:06] LABS: HEMOGLOBIN 9.9 g/dl (13.5-18.0); MEAN CORPUSCULAR HEMOGLOBIN 24 pg (27-31)
[2021-05-17 08:43] LABS: BAND 2 % (0-10); LYMPHOCYTE 9 % (20.0-51.0); NEUTROPHILS 89 % (42.0-75.2); PLATELET ESTIMATE NORMAL (NORMAL)
[2021-05-17 08:44] LABS: OVALOCYTES 1+
[2021-05-17 08:45] LABS: ANISOCYTOSIS 1+; HYPOCHROMIA 1+
--- NOTE | 2021-05-17 10:05 | NUR ---
PT SLEEPING IN BED. MORNING MEDICATIONS GIVEN SHIFT ASSESSMENT COMPLETED. PT VERY DROWSY AND FALLS ASLEEP DURING CONVERSATION. ANSWERS QUESTIONS APPROPRIATELY AND FOLLOWS COMMANDS. DOES REPORT PAIN TO ABDOMEN WHEN PALPATING. KIM ANY OTHER NEEDS. ON 2.5L VIA OXYMASK. WILL CONTINUE TO MONITOR.
[2021-05-17 18:53] LABS: TRICYCLIC ANTIDEPRESS URINE NEGATIVE
--- NOTE | 2021-05-17 21:30 | NUR ---
Spoke with Garima Torres APRN regarding BiPAP order. Pt's CO2 normal, satting well. Holding BiPAP for now, outside room on standby if status changes. RN aware.
[2021-05-18 03:21] VITALS: BP 132/55; PULSE 87; TEMP 98.4
--- NOTE | 2021-05-18 05:39 | NUR ---
pt weaned to 1L O2 per mask this am, then back up to 2L for c/o feeling SOA. pt spoke with his on the phone @[facility]. given updates per phone from this RN and Garima VAZQUEZ. pt more alert and awake after midnight, up in room to restroom with minimal assist. NS infusing per piv @75cc/hr, HS BGM 362, 12 units of SS given, 336 this am. pt on solu-medrol IV. attempted to switch to nasal cannula, however, prongs too painful in nares, kept on mask.
[2021-05-18 06:49] LABS: MEAN CELL VOLUME 73 fl (80.0-100.0); MEAN CORPUSCULAR HGB CONC 32 g/dl (33.0-37.0); MEAN PLATELET VOLUME 10.6 fl (7.4-10.4); PLATELET COUNT 232 K/mm3 (130-400); RED BLOOD COUNT 4.12 M/mm3 (4.20-5.60); REDCELL DISTRIBUTION WIDTH-CV 16.5 % (11.5-14.5)
[2021-05-18 07:10] LABS: HEMOGLOBIN 9.6 g/dl (13.5-18.0); MEAN CORPUSCULAR HEMOGLOBIN 23 pg (27-31)
[2021-05-18 07:11] LABS: CALCIUM 8.6 mg/dL (8.4-10.2); CREATININE, serum 1.02 mg/dL (0.72-1.25); POTASSIUM 4.3 mmol/L (3.5-4.5)
[2021-05-18 08:07] VITALS: BP 137/69; PULSE 79; TEMP 97.4
[2021-05-18 08:13] LABS: LYMPHOCYTE 3 % (20.0-51.0); NEUTROPHILS 96 % (42.0-75.2)
[2021-05-18 08:15] LABS: ANISOCYTOSIS 1+; HYPOCHROMIA 1+; MICROCYTOSIS 1+
[2021-05-18 08:16] LABS: PLATELET ESTIMATE NORMAL (NORMAL)
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
[2021-05-18] MEDS ORDERED: LEVAQUIN 750MG750 M1 PO (10:43)
[2021-05-18 11:43] VITALS: BP 146/58; PULSE 84; TEMP 97.7
--- NOTE | 2021-05-18 12:21 | NUR ---
SW called patient to complete intake. Patient states that he lives with his Jammie [phone] in [place]. Patient states that he does not utilize a walker, is independent with ADL's, and does not utilize any home health services at this time. Patient states that he can not recall the name of his PCP at this time and uses a pharmacy out of [facility] for all of his medications. Patient states he does not have anyone specifically appointed as his DPOA-HC at this time, and plans to return to his home upon DC. DAYNA will continue to follow. DC plan:home
--- NOTE | 2021-05-18 12:45 | NUR ---
NOTIFIED DR. KIRKLAND OF PT ELEVATED BLOOD GLUCOSE AT 393. RECEIVED ORDERS FOR IV INSULIN AND CONTINUING SQ SCHEDULED INSULIN. TO BE FOLLOWED BY 2HR RECHECK PERIOD.
[2021-05-18 15:33] VITALS: BP 147/65; PULSE 84; TEMP 98.8
--- NOTE | 2021-05-18 15:59 | NUR ---
NOTIFIED OF ELEVATED BLOOD GLUCOSE 2HR CHECK AFTER EATING. RECEIVED ORDERS FOR 10UNITS IV INSULIN, AND 30MINUTE RECHECK.
--- NOTE | 2021-05-18 17:10 | NUR ---
REPEATED BLOOD GLUCOSE AFTER 30 MINUTES. RESULT WAS 319, NOTIFIED DR. KIRKLAND TO ADDRESS PT DISCHARGE CONCERNS. RECEIVED INSTRUCTION TO GIVE SUBCUTANEOUS INSULIN ON SLIDING SCALE AND THAT DR. KIRKLAND IS COMFORTABLE WITH DISCHARGE.
[2021-05-18 17:48] VITALS: BP 157/78; PULSE 96; TEMP 97.7
--- NOTE | 2021-05-18 17:51 | NUR ---
PT DISCHARGING, BLOOD GLUCOSE OBTAINED AND FINAL INSULIN GIVEN WITH MEAL. VITALS OBTAINED. HEALTH SUMMARY AND DISCHARGE EDUCATION GIVEN TO BEST OF ABILITY. PT VERBALIZED UNDERSTANDING. INT DISCONTINUED.
--- NOTE | 2021-05-24 12:15 | NUR ---
airport utility worker contacted spouse as home health orders were written. Worker provided home health option and spouse chose [facility] as they had the highest quality score. Worker faxed and called Kendrick with the referral to include clinical information.
== END 2021-05-18 19:00 | disposition home or self-care (01) | DRG 193 ==
LOC: COL.ER 13:38 → MEDICAL 16:10
PROVIDERS: Nurse Practitioner Primary Care; Physician Assistant; ADMIT Internal Medicine
DX: J18.9 Pneumonia, unspecified organism (principal); J96.21 Acute and chronic respiratory failure with hypoxia; G93.41 Metabolic encephalopathy; I48.92 Unspecified atrial flutter; J44.1 Chronic obstructive pulmonary disease with (acute) exacerbation; N17.9 Acute kidney failure, unspecified; I24.8 Other forms of acute ischemic heart disease; E78.5 Hyperlipidemia, unspecified; I25.10 Atherosclerotic heart disease of native coronary artery without angina pectoris; E66.01 Morbid (severe) obesity due to excess calories; G89.29 Other chronic pain; I48.91 Unspecified atrial fibrillation; E03.9 Hypothyroidism, unspecified; I10 Essential (primary) hypertension; I27.20 Pulmonary hypertension, unspecified; J32.9 Chronic sinusitis, unspecified; D50.9 Iron deficiency anemia, unspecified; F32.A Depression, unspecified; G47.33 Obstructive sleep apnea (adult) (pediatric); D86.9 Sarcoidosis, unspecified; E11.65 Type 2 diabetes mellitus with hyperglycemia; I25.2 Old myocardial infarction; Z79.84 Long term (current) use of oral hypoglycemic drugs; Z79.82 Long term (current) use of aspirin; T20.24XD Burn of second degree of nose (septum), subsequent encounter; Z68.37 Body mass index [BMI] 37.0-37.9, adult
CPT/HCPCS: 99223-AI; 99232-AI; 99233-AI; 99239; J0456; J0696; J1815; J1956; J2920; J7030; J7050; Q9967